=== PATIENT | male | born 2000 | race Caucasian/White ===

== ENCOUNTER 2020-09-18 23:57 | Emergency (ER) | payer MEDICAID ==
[~2020-09-18] VITALS: Ht 185.4 cm; Wt 86.2 kg
[2020-09-19 00:21] VITALS: BP_SYST 126
--- NOTE | 2020-09-19 00:22 | NUR ---
Pt c/o "bug bites" x 2 to Left Lateral Hip x 2 days. Upon assessment, Welts x 2 noted. Denies c/o SOB.
--- NOTE | 2020-09-19 00:22 | NUR ---
Note maximiliano in EDM - 09/19/20 at 0108 by SDEDAJ Pt c/o "bug bites" x 2 to Left Lateral Thigh x 2 days. Upon assessment, Welts x 2 noted. Macarena c/o SOB.
--- NOTE | 2020-09-19 00:22 | NUR ---
Patient to ER bed 04 to gown for evaluation. Side rails up.
--- NOTE | 2020-09-19 00:31 | NUR ---
Dr. Tracey at bedside.
--- NOTE | 2020-09-19 00:40 | NUR ---
Upon pt taking one of the medications ordered by , pt slumped forward, dropping water and other pill on the floor. Pt then fell back in the bed with eyes rolled back and seizure like activity x [address] Tracey immediately called to bedside. Pt then became lucid stating "I don't know what just happened, that's never happened before." Pt denies hx of seizures or cardiac disorder. Pt moved to ER bed 01, placed to gown, and connected to compliance monitor.
--- NOTE | 2020-09-19 00:40 | NUR ---
Seizure precautions in effect to include seizure pads to side rails of bed.
--- NOTE | 2020-09-19 00:50 | NUR ---
Pt AAOx4, coherent speech, denies c/o pain or discomfort. No seizure-like activity noted. VSS, NAD.
[2020-09-19] MEDS: SULFAMETHOXAZOLE/TRIMETHOPR DS 1 TABLET PO ONE ×2 (01:10→01:20)
[2020-09-19] MEDS: IBUPROFEN 800 MG TABLET PO ONE ×2 (01:11→01:21)
--- NOTE | 2020-09-19 01:21 | NUR ---
Pt tolerates PO medications with no seizure-like activity noted. VSS, NAD.
--- NOTE | 2020-09-19 01:25 | NUR ---
Dr. Tracey at bedside to reassess pt. Pt Okay to be discharged.
[2020-09-19 01:30] VITALS: BP_SYST 110
--- NOTE | 2020-09-19 01:30 | NUR ---
Patient given written and verbal discharge instructions and verbalizes understanding. ER MD discussed with patient the results and treatment provided. Patient in stable condition. ID arm band removed. Rx of Motrin, Benadryl, and Bactrim DS given. Patient educated on pain management and to follow up with PMD. Pain Scale 0/10. Opportunity for questions provided and answered. Medication side effect fact sheet provided.
== END 2020-09-19 01:30 | disposition home or self-care (01) ==
LOC: SED 23:57
DX: S70.262A Insect bite (nonvenomous), left hip, initial encounter (principal); L03.116 Cellulitis of left lower limb; R03.0 Elevated blood-pressure reading, without diagnosis of hypertension; F12.90 Cannabis use, unspecified, uncomplicated; F17.200 Nicotine dependence, unspecified, uncomplicated; W57.XXXA Bitten or stung by nonvenomous insect and other nonvenomous arthropods, initial encounter; Y93.89 Activity, other specified; Y92.89 Other specified places as the place of occurrence of the external cause; Y99.8 Other external cause status
CPT/HCPCS: 93005; 99283

== ENCOUNTER 2021-11-29 16:23 | Emergency (ER) | payer OTHER, MEDICAID ==
[~2021-11-29] VITALS: Ht 185.4 cm; Wt 83.9 kg
[2021-11-29 16:51] VITALS: BP_SYST 127
--- NOTE | 2021-11-29 16:59 | NUR ---
TR Patient triaged and placed in waiting room. VSS and patient appears in no acute distress at this time. Accompanied by SELF, awaiting available bed, and MD notified of need for MSE.
--- NOTE | 2021-11-29 20:00 | NUR ---
Called pt x 3, no answer. Patient left without being seen. No further treatment provied. ER MD aware
== END 2021-11-29 20:00 | disposition left against medical advice (07) ==
LOC: SED 16:23
DX: R51.9 Headache, unspecified (principal); M54.2 Cervicalgia; Z53.21 Procedure and treatment not carried out due to patient leaving prior to being seen by health care provider